=== PATIENT | female | born 1990 | race Caucasian/White ===

== ENCOUNTER 2016-06-29 17:23 | Emergency (ER) | payer OTHER ==
[2016-06-29 17:35] VITALS: TEMP 98.2
[2016-06-29] MEDS ORDERED: ONDANSETRON DISINTEGRATING 4 MG TAB ONE (19:29)
[2016-06-29 19:49] VITALS: RESP 16
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
[2016-06-29] MEDS ORDERED: TDAP ADULT 0.5 ML INJ (BOOSTRIX) IM ONE (21:04)
[2016-06-29 21:20] VITALS: BP 126/76; PULSE 72; O2SAT 97
== END 2016-06-29 21:20 | disposition home or self-care (01) ==
DX: S09.90XA Unspecified injury of head, initial encounter (principal); S16.1XXA Strain of muscle, fascia and tendon at neck level, initial encounter; S90.32XA Contusion of left foot, initial encounter; S20.219A Contusion of unspecified front wall of thorax, initial encounter; Z23 Encounter for immunization; V49.49XA Driver injured in collision with other motor vehicles in traffic accident, initial encounter; Y92.410 Unspecified street and highway as the place of occurrence of the external cause; Y99.8 Other external cause status; Y93.89 Activity, other specified